=== PATIENT | male | born 2000 | race Two or more races ===

== ENCOUNTER 2023-06-11 11:51 | Emergency (ER) | payer OTHER ==
[~2023-06-11] VITALS: Ht 177.8 cm; Wt 68.0 kg
[2023-06-11 12:14] VITALS: BP 105/69; PULSE 99; RESP 16; TEMP 99; O2SAT 99
[2023-06-11] MEDS ORDERED: ALBU4TAB6 MT (12:23)
[2023-06-11] MEDS ORDERED: TAM75 MT (12:23)
== END 2023-06-11 13:14 | disposition home or self-care (01) ==
LOC: ER 11:51
DX: J11.1 Influenza due to unidentified influenza virus with other respiratory manifestations (principal)
CPT/HCPCS: 99283